=== PATIENT | female | born 1955 | race Caucasian/White ===

== ENCOUNTER → 2016-11-19 | Outpatient (CLI) | payer OTHER ==
[~2016-11-19] MED LIST: AMLO10TA2 PO; AMLO5TAB2 PO; CTRZ10T PO; FAMO20TA5 PO; FEXO1TAB43 PO; LANS15CA PO; LISI20TA PO; LOSA100T7 PO; METF-380 PO; MTP100TCR PO; ONDA4TAB8 PO; PANT40TA PO; PGLT30T PO; ROSU5TAB PO; SCR1T1 PO
[2016-11-19 07:11] LABS: ALANINE AMINOTRANSFERASE 24 U/L (0-55); ALBUMIN 4.1 G/DL (3.2-4.5); ANION GAP 10 MMOL/L (5-14); ASPARTATE AMINO TRANSFERASE 16 U/L (5-34); BILIRUBIN,TOTAL 0.6 MG/DL (0.1-1.0); BLOOD UREA NITROGEN 18 MG/DL (7-18); BUN/CREATININE RATIO 24; CALCIUM 9.1 MG/DL (8.5-10.1); CARBON DIOXIDE 19 MMOL/L (21-32); CHLORIDE 106 MMOL/L (98-107); CREATININE SERUM 0.76 MG/DL (0.60-1.30); GFR ESTIMATED > 60; GLUCOSE 166 MG/DL (70-105); POTASSIUM 4.6 MMOL/L (3.6-5.0); SODIUM 135 MMOL/L (135-145); TOTAL PROTEIN 7.3 G/DL (6.4-8.2)
== END ==
LOC: LAB 06:38
PROVIDERS: ATTEND Internal Medicine
DX: E11.9 Type 2 diabetes mellitus without complications (principal); I10 Essential (primary) hypertension; Z79.899 Other long term (current) drug therapy
CPT/HCPCS: 36415; 80053; 83036

== ENCOUNTER → 2016-12-30 | Outpatient (CLI) | payer OTHER ==
[2016-12-30 07:20] LABS: ALANINE AMINOTRANSFERASE 41 U/L (0-55); ALBUMIN 4.3 G/DL (3.2-4.5); ANION GAP 11 MMOL/L (5-14); ASPARTATE AMINO TRANSFERASE 23 U/L (5-34); BILIRUBIN,TOTAL 0.5 MG/DL (0.1-1.0); BLOOD UREA NITROGEN 21 MG/DL (7-18); BUN/CREATININE RATIO 25; CALCIUM 9.2 MG/DL (8.5-10.1); CARBON DIOXIDE 20 MMOL/L (21-32); CHLORIDE 106 MMOL/L (98-107); CREATININE SERUM 0.85 MG/DL (0.60-1.30); GFR ESTIMATED > 60; GLUCOSE 184 MG/DL (70-105); POTASSIUM 4.4 MMOL/L (3.6-5.0); SODIUM 137 MMOL/L (135-145); TOTAL PROTEIN 7.4 G/DL (6.4-8.2)
== END ==
LOC: LAB 06:43
PROVIDERS: ATTEND Internal Medicine
DX: E11.9 Type 2 diabetes mellitus without complications (principal); Z79.899 Other long term (current) drug therapy
CPT/HCPCS: 36415; 80053

== ENCOUNTER → 2017-03-06 | Outpatient (CLI) | payer OTHER ==
[2017-03-06 06:48] LABS: MEAN PLATELET VOLUME 10.2 FL (7.4-10.4); RED BLOOD COUNT 5.07 10^6/uL (4.35-5.85); RED CELL DISTRIBUTION WIDTH 12.7 % (10.0-14.5)
[2017-03-06 07:09] LABS: ALANINE AMINOTRANSFERASE 51 U/L (0-55); ALBUMIN 4.3 GM/DL (3.2-4.5); ANION GAP 11 MMOL/L (5-14); ASPARTATE AMINO TRANSFERASE 29 U/L (5-34); BILIRUBIN,TOTAL 0.4 MG/DL (0.1-1.0); BLOOD UREA NITROGEN 25 MG/DL (7-18); BUN/CREATININE RATIO 30; CALCIUM 9.4 MG/DL (8.5-10.1); CARBON DIOXIDE 18 MMOL/L (21-32); CHLORIDE 105 MMOL/L (98-107); CHOLESTEROL 167 MG/DL (< 200); CREATININE SERUM 0.82 MG/DL (0.60-1.30); DIRECT LDL 91 MG/DL (1-129); GFR ESTIMATED > 60; GLUCOSE 171 MG/DL (70-105); POTASSIUM 4.5 MMOL/L (3.6-5.0); SODIUM 134 MMOL/L (135-145); TOTAL PROTEIN 7.6 GM/DL (6.4-8.2); TRIGLYCERIDES 301 MG/DL (<150); VLDL CHOLESTEROL 60 MG/DL (5-40)
[2017-03-06 07:28] LABS: THYROID STIMULATING HORMONE 2.61 UIU/ML (0.35-4.94)
== END ==
LOC: LAB 06:33
PROVIDERS: ATTEND Internal Medicine
DX: I10 Essential (primary) hypertension (principal); E11.9 Type 2 diabetes mellitus without complications; Z79.899 Other long term (current) drug therapy; E78.5 Hyperlipidemia, unspecified
CPT/HCPCS: 36415; 80053; 80061; 83036; 84443; 85027

== ENCOUNTER → 2017-10-26 | Outpatient (CLI) | payer OTHER ==
[2017-10-26 12:52] LABS: ALANINE AMINOTRANSFERASE 37 U/L (0-55); ALBUMIN 4.5 GM/DL (3.2-4.5); ALKALINE PHOSPHATASE 61 U/L (40-136); BILIRUBIN,TOTAL 0.7 MG/DL (0.1-1.0); BUN/CREATININE RATIO 22; CALCIUM 9.7 MG/DL (8.5-10.1); CARBON DIOXIDE 20 MMOL/L (21-32); CHLORIDE 105 MMOL/L (98-107); GFR ESTIMATED > 60; GLUCOSE 143 MG/DL (70-105); POTASSIUM 5.1 MMOL/L (3.6-5.0); SODIUM 134 MMOL/L (135-145)
== END ==
LOC: LAB 11:49
PROVIDERS: ATTEND Internal Medicine
DX: E11.9 Type 2 diabetes mellitus without complications (principal); I10 Essential (primary) hypertension; Z79.899 Other long term (current) drug therapy
CPT/HCPCS: 36415; 80053; 83036

== ENCOUNTER 2018-03-02 10:03 | Inpatient (IN) | payer OTHER ==
[~2018-03-02] VITALS: Ht 152.4 cm; Wt 81.9 kg
[2018-03-02] VITALS (15 sets, daily range): BP systolic 100–144; BP diastolic 50–90
[~2018-03-02 10:03] MED LIST changes: -CANA100T PO; -CETI10TA17 PO; -LISI40TA PO; -METF10002 PO; -METO-395 PO; -ROSU5TAB12 PO; -SITA100T12 PO; -SPIR25TA5 PO
[2018-03-02] MEDS ORDERED: NS IV 1000 ML 1,000 ML IV SCH ×2 (10:23→16:30)
[2018-03-02] MEDS ORDERED: RT-ALBUTEROL SULF 2.5 MG/3 ML PRE-MIX VIAL INH STA (10:25)
[2018-03-02] MEDS ORDERED: FUROSEMIDE 40 MG/4 ML INJ (LASIX) IVP ONE (10:30)
[2018-03-02] MEDS ORDERED: CALCIUM GLUC. 10% 4.65 MEQ/10 ML VIAL IV ONE (10:30)
--- NOTE | 2018-03-02 10:40 | ED General ---
General Chief Complaint: General Problems/Pain Stated Complaint: POTASSIUM HIGH AND KIDNEY FUNCTION DOWN GM Nursing Triage Note: PT SENT TO THE ER BY STEPHANIE SCHROEDER WITH HIGH POTASSIUM AND BAD KIDNEY FUNCTION FROM LABS THIS A.M. Nursing Sepsis Screen: No Definite Risk Source of Information: Patient, Spouse Exam Limitations: No Limitations History of Present Illness Date Seen by Provider: Mar 02, 2018 Time Seen by Provider: 10:24 Initial Comments Patient presents to ER by private conveyance with a chief complaint she was called by her private provider and told that her potassium was elevated and she should come to the ER to have it worked up. She thinks it was around 6. She says for the past 4 days she's not felt very well and she had labs drawn today at this hospital in anticipation of an appointment tomorrow with Dr. Lowry. She couple months ago started spironolactone she is also on metformin in the, Nara has a history of diabetes, couple other blood pressure medicines. She been taking her medicines routinely. She is a pharmacist locally. She's not having any chest pain or shortness of breath or feel of palpitations or flutters. She is not having any swelling. She denies fevers chills nausea vomiting. Her labs from this morning inserted potassium 6.9 sodium 131 and a creatinine of 1.9 with a GFR 26. Her calcium was 10.0 and glucose 156. TSH was normal 2.3. CBC unremarkable with a white count of 8 and hemoglobin 14 and platelets of 239 previous labs in October demonstrated potassium of 5.1 which was subsequent to starting her spironolactone. Hemoglobin A1c at that time was 8.2 Allergies and Home Medications Allergies Coded Allergies: Sodium Bisulfite (Verified Allergy, Severe, SHORTNESS OF BREATH, HIVES, 10/04) Sulfa (Sulfonamide Antibiotics) (Verified Allergy, Severe, RASH, SHORTNESS OF BREATH, 11/09/07) Penicillins (Verified Allergy, Mild, RASH, 11/09/07) Home Medications Amlodipine Besylate 10 Mg Tablet, 10 MG PO DAILY, (Reported) Cetirizine Hcl 10 Mg Tablet, 1 EACH PO DAILY, (Reported) Fexofenadine/Pseudoephedrine 1 Each Tab.er.24h, 1 EACH PO DAILY, (Reported) Lisinopril 20 Mg Tablet, 20 MG PO BID, (Reported) Losartan Potassium 100 Mg Tablet, 100 MG PO DAILY, (Reported) Metformin Hcl 1,000 Mg Tablet, 1 EACH PO BID WITH MEALS, (Reported) Metoprolol Succinate 100 Mg Tab.sr.24h, 1 EACH PO DAILY, (Reported) Pioglitazone Hcl 30 Mg Tab, 30 MG PO DAILY, (Reported) Rosuvastatin Calcium 5 Mg Tablet, 5 MG PO DAILY, (Reported) Patient Home Medication List Home Medication List Reviewed: Yes Review of Systems Constitutional: No chills, No diaphoresis, No fever; malaise, weakness EENTM: No ear discharge, No ear pain Respiratory: No cough, No short of breath Cardiovascular: No chest pain, No edema, No Hx of Intervention, No palpitations , No syncope, No vascular heart diseas Gastrointestinal: No abdominal pain, No constipation, No diarrhea, No nausea Genitourinary: No discharge, No dysuria Musculoskeletal: No back pain, No joint pain Past Znoowcs-Gaaejv-Ssqsix Hx Patient Social History Alcohol Use: Denies Use Recreational Drug Use: No Smoking Status: Former Smoker Former Smoker, Quit: Aug 24, 1985 Recent Foreign Travel: No Contact w/Someone Who Travel: No Recent Infectious Disease Expo: No Recent Hopitalizations: No Seasonal Allergies Seasonal Allergies: Yes Past Medical History Surgeries: Yes (CS X2) Section, Tonsillectomy Respiratory: No Cardiac: No Neurological: No Genitourinary: No Gastrointestinal: No Musculoskeletal: No Endocrine: Yes Diabetes, Non-Insulin dep HEENT: No Cancer: No Psychosocial: No Integumentary: No Physical Exam Vital Signs Vital Signs - First Documented 03/02/18 10:09 Temp 96.0 Pulse 66 Resp 20 B/P (MAP) 116/86 (96) Pulse Ox 100 O2 Delivery Room Air Capillary Refill : Less Than 3 Seconds Height, Weight, BMI Height: 5', 0.00" Weight: 182lbs 0.0oz, [id number] Method:Stated ,38.5BMI General Appearance: No Apparent Distress, WD/WN Eyes: Bilateral Eye Normal Inspection, Bilateral Eye PERRL, Bilateral Eye EOMI HEENT: PERRL/EOMI, TMs Normal, Normal ENT Inspection, Pharynx Normal Neck: Full Range of Motion, Normal Inspection, Non Tender, Supple Respiratory: Chest Non Tender, Lungs Clear, Normal Breath Sounds, No Accessory Muscle Use, No Respiratory Distress Cardiovascular: Regular Rate, Rhythm, No Edema, No Murmur, Normal Peripheral Pulses Gastrointestinal: Normal Bowel Sounds, Non Tender, Soft Extremity: Normal Capillary Refill, No Pedal Edema Neurologic/Psychiatric: Alert, Oriented x3, No Motor/Sensory Deficits, Normal Mood/Affect Skin: Normal Color, Warm/Dry Progress/Results/Core Measures Suspected Sepsis Recent Fever Within 48 Hours: No Infection Criteria Present: None New/Unexplained Altered Menta: No Sepsis Screen: No Definite Risk SIRS Temperature:96.0 Pulse: 66 Respiratory Rate: 20 Blood Pressure 116 /86 Mean: 96 Results/Orders Lab Results Laboratory Tests Test 03/02/18 10:35 Range/Units Urine Color YELLOW Urine Clarity SLIGHTLY CLOUDY Urine pH 5 5-9 Urine Specific [place] 1.020 1.016-1.022 Urine Protein 1+ H NEGATIVE Urine Glucose (UA) 2+ H NEGATIVE Urine Ketones NEGATIVE NEGATIVE Urine Nitrite NEGATIVE NEGATIVE Urine Bilirubin NEGATIVE NEGATIVE Urine Urobilinogen NORMAL NORMAL MG/DL Urine Leukocyte Esterase 2+ H NEGATIVE Urine RBC (Auto) NEGATIVE NEGATIVE Urine RBC NONE /HPF Urine WBC 5-10 H /HPF Urine Squamous Epithelial Cells 2-5 /HPF Urine Crystals NONE /LPF Urine Bacteria TRACE /HPF Urine Casts PRESENT /LPF Urine Hyaline Casts 25-50 H /LPF Urine Mucus NEGATIVE /LPF Urine Culture Indicated YES My Orders Orders - NERY AMBROSE Saline Lock/Iv-Start (03/02/18 10:23) Ns Iv 1000 Ml (Sodium Chloride 0.9%) (03/02/18 10:23) Ekg Tracing (03/02/18 10:23) Ua Culture If Indicated (03/02/18 10:24) Albuterol Pre-Mix Nebs (Rt) (Proventil (03/02/18 10:25) Svn Small Volume Nebulizer (03/02/18 10:25) Continuous Ekg Monitoring (03/02/18 10:27) Calcium Gluconate 10% Inj (Calcium Gluco (03/02/18 10:30) Furosemide Injection (Lasix Injection) (03/02/18 10:30) Urine Culture (03/02/18 10:35) Medications Given in ED Current Medications Medications Dose Ordered Sig/Haylee Route Start Time Stop Time Status Last Admin Dose Admin Calcium Gluconate 4.65 meq ONCE ONCE IV 03/02/18 10:30 03/02/18 10:31 DC 03/02/18 11:01 4.65 MEQ Furosemide 40 mg ONCE ONCE IVP 03/02/18 10:30 03/02/18 10:31 DC 03/02/18 11:00 40 MG Vital Signs/I&O 03/02/18 03/02/18 10:09 11:19 Temp 96.0 Pulse 66 Resp 20 B/P (MAP) 116/86 (96) Pulse Ox 100 97 O2 Delivery Room Air Room Air Capillary Refill : Less Than 3 Seconds Blood Pressure Mean: 96 Progress Note : Time: 11:23 Progress Note We will initiate calcium gluconate and give some breathing treatments as well as 1 L of IV fluids, obtain a urine specimen and give her some Lasix IV. Once this done we'll give her set up inpatient and on repeat labs as long she is not symptomatic we'll let Internal Medicine decide whether they want to start insulin glucose therapy. Initial EKG does show some tenting of the T waves but no other dysrhythmia. ECG Initial ECG Impression Date: Mar 02, 2018 Initial ECG Impression Time: 10:45 Initial ECG Rate: 61 Initial ECG Rhythm: Normal Sinus Initial ECG Intervals: Normal Initial ECG Impression: Normal, Nonspecific Changes Comment Mildly tented T waves without ST elevation or depression. Departure Communication (Admissions) Time/Spoke to Admitting Phy: 11:40 Discussed case lab and EKG with Dr. Tamayo. She wants repeat lab at 1500 and if it 's high then she will initiate insulin and glucose so she would like the patient in the ICU. Impression Primary Impression: Acute hyperkalemia Additional Impressions: AMBER (acute kidney injury) UTI (urinary tract infection) Qualified Codes: N30.00 - Acute cystitis without hematuria Disposition: ADMITTED INPATIENT Condition: Stable Admissions Decision to Admit Reason: Admit from ER (General) Decision to Admit/Date: Mar 02, 2018 Time/Decision to Admit Time: 11:53 Departure-Patient Inst. Referrals: LAUREL LOWRY MD (PCP/Family) Primary Care Physician Copy Copies To 1: LAUREL LOWRY MD, TITUS J Mar 02, 2018 10:40
[2018-03-02 10:50] LABS: BILIRUBIN,URINE NEGATIVE (NEGATIVE); CLARITY,URINE SLIGHTLY CLOUDY; COLOR,URINE YELLOW; GLUCOSE, URINE (UA) 2+ (NEGATIVE); KETONES,URINE NEGATIVE (NEGATIVE); LEUKOCYTE ESTERASE ,URINE 2+ (NEGATIVE); NITRITE,URINE NEGATIVE (NEGATIVE); PH,URINE 5 (5-9); PROTEIN,URINE 1+ (NEGATIVE); UROBILINOGEN,URINE NORMAL (NORMAL)
[2018-03-02 10:58] LABS: BACTERIA,URINE TRACE /HPF; HYALINE CASTS, URINE 25-50 /LPF
[2018-03-02] MEDS ORDERED: cefTRIAXone INJECTION 1,000 MG in NS (IVPB) 50 ML IV ONE (12:00)
[2018-03-02] MEDS ORDERED: CATHETER FLUSH 10 ML SYR IV PRN (13:00)
[2018-03-02] MEDS: NS IV 1000 ML 1,000 ML IV SCH ×2 (13:39→21:20)
[2018-03-02] MEDS ORDERED: SITA100T12 PO (14:21)
[2018-03-02] MEDS ORDERED: METO-395 PO (14:21)
[2018-03-02] MEDS ORDERED: METF10002 PO (14:21)
[2018-03-02] MEDS ORDERED: AMLO5TAB2 PO (14:21)
[2018-03-02] MEDS ORDERED: SPIR25TA5 PO (14:21)
[2018-03-02] MEDS ORDERED: LISI40TA PO (14:21)
[2018-03-02] MEDS ORDERED: CANA100T PO (14:21)
[2018-03-02] MEDS ORDERED: ROSU5TAB12 PO (14:21)
[2018-03-02] MEDS ORDERED: CETI10TA17 PO (14:25)
--- NOTE | 2018-03-02 14:31 | History & Physical-Hospitalist ---
History of Present Illness HPI/Chief Complaint Pt is a 63yoCF with a PMH of HTN, NIDDMII, and HLD who presented to the ER with CC hyperkalemia after having labs drawn for his routine doctor's appointment. She states that she has noticed she has been more weak lately as well and has been having a hard time standing. Her labs revealed a K of 6.9 this AM and a creatinine of 1.94. She was referred to the ER for this and EKG revealed minimally peaked T waves so she was emergently given calcium gluconate. She was also treated with lasix and high dose albuterol. Repeat labs are to be drawn at 1500 today. Date Seen 03/02/18 Time Seen by Provider: 14:00 Attending Physician Antonio Tamayo MD PCP Rick Patel MD Referring Physician Date of Admission Mar 02, 2018 at 11:50 am Home Medications & Allergies Home Medications Reviewed patient Home Medication Reconciliation performed by pharmacy medication reconciliations veterinary surgery technician and/or nursing. Patients Allergies have been reviewed. Allergies Allergies Coded Allergies Sodium Bisulfite (Verified Allergy, Severe, SHORTNESS OF BREATH, HIVES, ) Sulfa (Sulfonamide Antibiotics) (Verified Allergy, Severe, RASH, SHORTNESS OF BREATH, 11/09/07) Penicillins (Verified Allergy, Mild, RASH, 11/09/07) Past Jojwzpo-Mcaoxd-Dnonig Hx Past Med/Social Hx: Reviewed Nursing Past Med/Soc Hx Patient Social History Employed/Student: employed Alcohol Use: Rarely Uses Number of Drinks Today: 0 Recreational Drug Use: No Smoking Status: Former Smoker Former Smoker, Quit: Aug 24, 1985 Physical Abuse Screen: No Sexual Abuse: No Recent Foreign Travel: No Contact w/other who traveled: No Recent Hopitalizations: No Recent Infectious Disease Expo: No Seasonal Allergies Seasonal Allergies: Yes Past Medical History Surgeries: Section, Tonsillectomy, Vasectomy Currently Using CPAP: Yes Cardiac: High Cholesterol, Hypertension h/o preeclampsia Endocrine: Diabetes, Non-Insulin dep History of Blood Disorders: No Family History Reviewed Nursing Family Hx Heart Disease, CAD Over 55 Years Old, Stroke Review of Systems Constitutional: No chills, No fever; malaise, weakness EENTM: No blurred vision, No double vision, No nose congestion, No throat pain Respiratory: No cough, No dyspnea on exertion, No short of breath Cardiovascular: No chest pain, No edema, No palpitations Gastrointestinal: No abdominal pain, No constipation, No diarrhea, No nausea, No vomiting Genitourinary: No dysuria, No frequency Musculoskeletal: No joint pain, No muscle pain Skin: No lesions, No rash Psychiatric/Neurological: Denies Headache, Denies Numbness, Denies Tingling; Weakness (generalized) Physical Exam Physical Exam Vital Signs Vital Signs - First Documented 03/02/18 10:09 Temp 96.0 Pulse 66 Resp 20 B/P (MAP) 116/86 (96) Pulse Ox 100 O2 Delivery Room Air Capillary Refill : Less Than 3 Seconds Height, Weight, BMI Height: 5', 0.00" Weight: 182lbs 0.0oz, [id number] Method:Stated ,35.5BMI General Appearance: No Apparent Distress, WD/WN HEENT: PERRL/EOMI, Moist Mucous Membranes Neck: Non Tender, Supple Respiratory: Lungs Clear, No Respiratory Distress Cardiovascular: Regular Rate, Rhythm, No Murmur Gastrointestinal: Normal Bowel Sounds, Non Tender, Soft Extremity: Normal Capillary Refill, No Calf Tenderness Neurologic/Psychiatric: Alert, Oriented x3, Normal Mood/Affect Skin: Normal Color, Warm/Dry Results Results/Procedures Labs Laboratory Tests 03/02/18 15:20 03/02/18 19:05 03/03/18 03:00 03/03/18 03:20 03/03/18 09:55 Patient resulted labs reviewed. 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 and metformin for years Will hold all for now (2) AMBER (acute kidney injury) Status: Resolved Assessment & Plan: Baseline creatinine 0.9 in October Continue IVF Trend (3) Non-insulin dependent type 2 diabetes mellitus Status: Chronic Assessment & Plan: Will add sliding scale and accucheks (4) Essential (primary) hypertension Assessment & Plan: Took BP meds this AM metoprolol added Trend (5) Prophylactic measure Assessment & Plan: NS at 180ml/hr Heparin for DVT ppx Clinical Quality Measures DVT/VTE Risk/Contraindication: Risk Factor Score Per Nursin RFS Level Per Nursing on Admit: 2=Moderate ANTONIO TAMAYO MD Mar 02, 2018 2:31 pm
[2018-03-02] MEDS ORDERED: ANTACID SUSP 30 ML UDC (MYLANTA) PO PRN (14:45)
[2018-03-02] MEDS ORDERED: ACETAMINOPHEN 325 MG TABLET PO PRN (14:45)
[2018-03-02] MEDS ORDERED: MILK OF MAGNESIA 400 MG/5 ML 30 ML UDC PO PRN (14:45)
[2018-03-02] MEDS: inSUlin ASPART (NovoLOG) 1 UNIT/0.01 ML (CHARGE PER UNIT) SC SCH ×2 (15:05→21:21)
[2018-03-02 15:52] LABS: CALCIUM 9.6 MG/DL (8.5-10.1); CREATININE SERUM 1.56 MG/DL (0.60-1.30)
[2018-03-02 16:01] LABS: POTASSIUM 7.1 MMOL/L (3.6-5.0)
[2018-03-02] MEDS ORDERED: RT-ALBUTEROL SULF 2.5 MG/3 ML PRE-MIX VIAL ONE (16:25)
[2018-03-02] MEDS ORDERED: DEXTROSE 50% 50 ML (IMS) SYR IV NR (16:30)
[2018-03-02] MEDS ORDERED: RT-ALBUTEROL SULF 2.5 MG/3 ML PRE-MIX VIAL INH NR (16:30)
[2018-03-02] MEDS ORDERED: RT-ALBUTEROL SULF 2.5 MG/3 ML PRE-MIX VIAL INH ONE (16:30)
[2018-03-02] MEDS ORDERED: SOD POLYSTERENE 15 GM/60 ML (KAYEXALATE) UNIT DOSE PO NR (16:30)
[2018-03-02] MEDS ORDERED: FUROSEMIDE 40 MG/4 ML INJ (LASIX) IVP NR (16:30)
[2018-03-02] MEDS ORDERED: inSUlin (REGULAR) HUMAN 1 UNIT/0.01 ML (CHARGE PER UNIT) IV NR (16:30)
[2018-03-02] MEDS ORDERED: SODIUM BICARB 8.4% 50 MEQ/50 ML (ABBOTT) SYR IV NR (16:30)
[2018-03-02] MEDS ORDERED: NS IV 1000 ML 1,000 ML IV ONE (16:30)
[2018-03-02 19:29] LABS: CREATININE SERUM 1.29 MG/DL (0.60-1.30); POTASSIUM 4.9 MMOL/L (3.6-5.0)
[2018-03-02] MEDS: ONDANSETRON 4 MG/2 ML (SDV) Z0FRAN IV PRN (20:50)
[2018-03-03] VITALS (24 sets, daily range): BP systolic 95–150; BP diastolic 56–99
[2018-03-03] MEDS: NS IV 1000 ML 1,000 ML IV SCH (03:01)
[2018-03-03 03:38] LABS: BASOPHILS % (AUTO) 0 % (0-10); EOSINOPHILS # (AUTO) 0.1 10^3/uL (0.0-0.3); EOSINOPHILS % (AUTO) 2 % (0-10); HEMATOCRIT 35 % (35-52); HEMOGLOBIN 11.9 G/DL (11.5-16.0); LYMPHOCYTES # (AUTO) 2.1 X 10^3 (1.0-4.0); LYMPHOCYTES % (AUTO) 42 % (12-44); MEAN CORPUSCULAR HEMOGLOBIN 29 PG (25-34); MEAN CORPUSCULAR HGB CONC 34 G/DL (32-36); MEAN CORPUSCULAR VOLUME 84 FL (80-99); MEAN PLATELET VOLUME 10.1 FL (7.4-10.4); MONOCYTES # (AUTO) 0.6 X 10^3 (0.0-1.0); MONOCYTES % (AUTO) 11 % (0-12); NEUTROPHILS # (AUTO) 2.3 X 10^3 (1.8-7.8); NEUTROPHILS % (AUTO) 45 % (42-75); PLATELET COUNT 174 10^3/uL (130-400); RED BLOOD COUNT 4.15 10^6/uL (4.35-5.85); RED CELL DISTRIBUTION WIDTH 12.9 % (10.0-14.5)
[2018-03-03 05:47] LABS: BUN/CREATININE RATIO 59; CALCIUM 8.3 MG/DL (8.5-10.1); CARBON DIOXIDE 12 MMOL/L (21-32); CHLORIDE 117 MMOL/L (98-107); CREATININE SERUM 0.86 MG/DL (0.60-1.30); GFR ESTIMATED > 60; GLUCOSE 107 MG/DL (70-105); POTASSIUM 5.5 MMOL/L (3.6-5.0); SODIUM 138 MMOL/L (135-145)
[2018-03-03] MEDS ORDERED: POTASSIUM CL 10MEQ/50ML IVPB 50 ML IV SCH ×2 (06:00)
[2018-03-03] MEDS ORDERED: KCL 20 MEQ TAB (K-DUR) PO SCH ×2 (06:00)
[2018-03-03] MEDS ORDERED: MAGNESIUM 1 GM/100 ML IVPB 100 ML IV SCH (06:00)
--- NOTE | 2018-03-03 06:06 | Pulmonary Progress Note ---
Subjective Time Seen by Provider: 06:01 Subjective/Events-last exam 63yo presented secondary HTN, NIDDM presented found to have hyperkalemia 6.9 and Cr 1.94. 2 mo ago pt was started on spironolactone metaformin, and Januvia. PT had peaked Twaves on EKG. Pt was treated in ED with Calcium Gluconate, Lasix , and Albuterol. K+ was repeated and was found to be increased from presentation. PT was then treated with bicarb, insulin, Kayexalate and lasix. repeat K+ 2hrs later was down to 4.9. I am consulted for ICU management. Focused Exam Lactate Level 03/02/18 16:55: Lactic Acid Level 1.59 Exam Exam Vital Signs Date Time Temp Pulse Resp B/P (MAP) Pulse Ox O2 Delivery O2 Flow Rate FiO2 03/03/18 05:00 73 15 106/58 (74) 95 Room Air 03/03/18 04:00 75 14 116/59 (78) 98 Room Air 03/03/18 03:00 81 17 117/70 (86) 98 Room Air 03/03/18 02:00 73 19 98/68 (78) 98 Room Air 03/03/18 01:00 78 03/03/18 01:00 78 14 108/61 (77) 96 Room Air 03/03/18 00:00 79 20 112/62 (79) 97 Room Air 03/02/18 23:00 82 12 107/59 (75) 97 Room Air 03/02/18 22:00 93 15 110/60 (77) 98 Room Air 03/02/18 21:00 102 21 130/56 (80) 97 Room Air 03/02/18 20:00 106 16 144/59 (87) 98 Room Air 03/02/18 19:00 90 19 133/64 (87) 98 Room Air 03/02/18 19:00 90 03/02/18 18:00 96 15 125/58 (80) 95 Room Air 03/02/18 17:00 97 16 140/51 (80) 100 Room Air 03/02/18 16:29 98 Room Air 03/02/18 16:00 79 16 118/90 (99) 99 Room Air 03/02/18 15:00 79 22 111/62 (78) 97 Room Air 7/10/18 14:00 95 15 118/54 (75) 100 Room Air 03/02/18 13:45 87 13 122/50 (74) 99 Room Air 03/02/18 13:30 87 22 138/63 (88) 100 Room Air 03/02/18 13:15 85 19 100/63 (75) 97 Room Air 03/02/18 13:00 86 20 119/62 (81) 97 Room Air 03/02/18 12:45 97.4 89 15 126/55 (78) 96 Room Air 03/02/18 12:43 86 03/02/18 12:35 96.0 87 20 136/57 (96) 98 Room Air 03/02/18 11:19 97 Room Air 03/02/18 10:09 96.0 66 20 116/86 (96) 100 Room Air I & O 03/03/18 07:00 Intake Total 550 ml Output Total 0 ml Balance 550 ml PULEXAM Height: 5', 0.00" Weight: 182lbs 0.0oz, [id number] Method:Stated ,35.5BMI General Appearance: No Apparent Distress, WD/WN HEENT: PERRL/EOMI, Moist Mucous Membranes Neck: Non Tender, Supple Respiratory: Lungs Clear, No Respiratory Distress Cardiovascular: Regular Rate, Rhythm, No Murmur Capillary Refill: Less Than 3 Seconds Extremity: Normal Capillary Refill, No Calf Tenderness Neurologic/Psychiatric: Alert, Oriented x3, Normal Mood/Affect Skin: Normal Color, Warm/Dry Results Lab Laboratory Tests 03/02/18 15:20 03/02/18 19:05 03/03/18 03:00 03/03/18 03:20 Assessment/Plan Assessment/Plan Severe Hyperkalemia with nonanion gapped metabolic acidosis -Will repeat Lasix and Kayexalate this AM -Home Spironolactone is on hold -s/p Calcium gluconate, kayexalte, insulin, lasix, bicarb -repeat 2 amps of bicarb -Start BiCarb gtt with 2 amps of bicarb 1/2 NS at 150 -Repeat Chem 2hrs after starting bicarb gtt AMBER- improving -IVF -Lisinopril and spironolactone are on hold -Hold of on repeat lasix for now and repeat labs NIDDM -Monitor HTN -Lopressor MEY PETERSON DO Mar 03, 2018 06:06
[2018-03-03] MEDS ORDERED: SODIUM BICARBONATE 8.4% VIAL 100 MEQ in 1/2 NS IV SOLUTION 1,000 ML IV SCH (06:15)
[2018-03-03] MEDS: MAGNESIUM 1 GM/100 ML IVPB 100 ML IV SCH (06:54)
--- NOTE | 2018-03-03 06:54 | Pulmonary Consultation ---
History of Present Illness History of Present Illness Date of Consultation 03/03/18 06:54 Time Seen by Provider: 06:55 Date of Admission History of Present Illness 63yo presented secondary HTN, NIDDM presented found to have hyperkalemia 6.9 and Cr 1.94. 2 mo ago pt was started on spironolactone metaformin, and Januvia. PT had peaked Twaves on EKG. Pt was treated in ED with Calcium Gluconate, Lasix , and Albuterol. K+ was repeated and was found to be increased from presentation. PT was then treated with bicarb, insulin, Kayexalate and lasix. repeat K+ 2hrs later was down to 4.9. I am consulted for ICU management. Allergies and Home Medications Allergies Coded Allergies: Sodium Bisulfite (Verified Allergy, Severe, SHORTNESS OF BREATH, HIVES, 10/04) Sulfa (Sulfonamide Antibiotics) (Verified Allergy, Severe, RASH, SHORTNESS OF BREATH, 11/09/07) Penicillins (Verified Allergy, Mild, RASH, 11/09/07) Home Medications Amlodipine Besylate 5 Mg Tablet, 10 MG PO DAILY, (Reported) TAKES 2 (5MG) TABLETS Canagliflozin 100 Mg Tablet, 100 MG PO DAILY, (Reported) Cetirizine HCl 10 Mg Tablet, 10 MG PO HS, (Reported) Fexofenadine/Pseudoephedrine 1 Each Tab.er.24h, 1 TAB PO DAILY PRN for ALLERGIES , (Reported) Lisinopril 40 Mg Tablet, 40 MG PO DAILY, (Reported) Metformin HCl 1,000 Mg Tablet, 1,000 MG PO BID WITH MEALS, (Reported) Metoprolol Succinate 100 Mg Tab.er.24h, 100 MG PO DAILY, (Reported) Rosuvastatin Calcium 5 Mg Tablet, 5 MG PO HS, (Reported) Sitagliptin Phosphate 100 Mg Tablet, 100 MG PO DAILY, (Reported) Spironolactone 25 Mg Tablet, 25 MG PO DAILY, (Reported) Past Qpdfzdz-Xjsdgs-Vmerei Hx Past Med/Social Hx: Reviewed Nursing Past Med/Soc Hx Patient Social History Alcohol Use: Rarely Uses Number of Drinks Today: 0 Recreational Drug Use: No Smoking Status: Former Smoker Former Smoker, Quit: Aug 24, 1985 Recent Foreign Travel: No Contact w/Someone Who Travel: No Recent Infectious Disease Expo: No Recent Hopitalizations: No Seasonal Allergies Seasonal Allergies: Yes Past Medical History Surgeries: Yes (CS X2) Section, Tonsillectomy, Vasectomy Respiratory: No Currently Using CPAP: Yes Cardiac: Yes High Cholesterol, Hypertension Neurological: No Genitourinary: No Gastrointestinal: No Musculoskeletal: No Endocrine: Yes Diabetes, Non-Insulin dep HEENT: No Cancer: No Psychosocial: No Integumentary: No Blood Disorders: No Family Medical History Reviewed Nursing Family Hx Heart Disease, CAD Over 55 Years Old, Stroke Review of Systems Time Seen by Provider: 08:50 Exam Exam Vital Signs Date Time Temp Pulse Resp B/P (MAP) Pulse Ox O2 Delivery O2 Flow Rate FiO2 03/03/18 05:00 73 15 106/58 (74) 95 Room Air 03/03/18 04:00 75 14 116/59 (78) 98 Room Air 03/03/18 03:00 81 17 117/70 (86) 98 Room Air 03/03/18 02:00 73 19 98/68 (78) 98 Room Air 03/03/18 01:00 78 03/03/18 01:00 78 14 108/61 (77) 96 Room Air 03/03/18 00:00 79 20 112/62 (79) 97 Room Air 03/02/18 23:00 82 12 107/59 (75) 97 Room Air 03/02/18 22:00 93 15 110/60 (77) 98 Room Air 03/02/18 21:00 102 21 130/56 (80) 97 Room Air 03/02/18 20:00 106 16 144/59 (87) 98 Room Air 03/02/18 19:00 90 19 133/64 (87) 98 Room Air 03/02/18 19:00 90 03/02/18 18:00 96 15 125/58 (80) 95 Room Air 03/02/18 17:00 97 16 140/51 (80) 100 Room Air 03/02/18 16:29 98 Room Air 03/02/18 16:00 79 16 118/90 (99) 99 Room Air 03/02/18 15:00 79 22 111/62 (78) 97 Room Air 03/02/18 14:00 95 15 118/54 (75) 100 Room Air 03/02/18 13:45 87 13 122/50 (74) 99 Room Air 03/02/18 13:30 87 22 138/63 (88) 100 Room Air 03/02/18 13:15 85 19 100/63 (75) 97 Room Air 03/02/18 13:00 86 20 119/62 (81) 97 Room Air 03/02/18 12:45 97.4 89 15 126/55 (78) 96 Room Air 03/02/18 12:43 86 03/02/18 12:35 96.0 87 20 136/57 (96) 98 Room Air 03/02/18 11:19 97 Room Air 03/02/18 10:09 96.0 66 20 116/86 (96) 100 Room Air I & O 03/03/18 07:00 Intake Total 550 ml Output Total 0 ml Balance 550 ml PULEXAM Height: 5', 0.00" Weight: 182lbs 0.0oz, [id number] Method:Stated ,35.5BMI General Appearance: No Apparent Distress, WD/WN HEENT: PERRL/EOMI, Moist Mucous Membranes Neck: Non Tender, Supple Respiratory: Lungs Clear, No Respiratory Distress Cardiovascular: Regular Rate, Rhythm, No Murmur Capillary Refill: Less Than 3 Seconds Extremity: Normal Capillary Refill, No Calf Tenderness Neurologic/Psychiatric: Alert, Oriented x3, Normal Mood/Affect Skin: Normal Color, Warm/Dry Results Lab Laboratory Tests 03/02/18 15:20 03/02/18 19:05 03/03/18 03:00 03/03/18 03:20 Assessment/Plan Assessment/Plan Severe Hyperkalemia with nonanion gapped metabolic acidosis -Will repeat Lasix and Kayexalate this AM -Home Spironolactone is on hold -s/p Calcium gluconate, kayexalte, insulin, lasix, bicarb -repeat 2 amps of bicarb -Start BiCarb gtt with 2 amps of bicarb 1/2 NS at 150 -Repeat Chem 2hrs after starting bicarb gtt AMBER- improving -IVF -Lisinopril and spironolactone are on hold -Hold of on repeat lasix for now and repeat labs NIDDM -Monitor HTN -Lopressor 255 MEY PETERSON DO Mar 03, 2018 06:54
[2018-03-03] MEDS ORDERED: SODIUM BICARB 8.4% 50 MEQ/50 ML (ABBOTT) SYR IV NR (07:11)
[2018-03-03] MEDS: inSUlin ASPART (NovoLOG) 1 UNIT/0.01 ML (CHARGE PER UNIT) SC SCH ×4 (07:30→21:00)
[2018-03-03] MEDS ORDERED: SODIUM BICARBONATE 8.4% VIAL 100 MEQ in D5W 1000 ML IV SOLUTION 1,000 ML IV SCH (07:30)
[2018-03-03] MEDS: meTOprolol SUCCINATE 100 MG (TOPROL XL) TAB PO SCH (07:58)
--- NOTE | 2018-03-03 08:21 | Progress Note-Hospitalist ---
Subjective HPI/CC On Admission Date Seen by Provider: Mar 03, 2018 Time Seen by Provider: 08:16 Pt is a 63yoCF with a PMH of HTN, NIDDMII, and HLD who presented to the ER with CC hyperkalemia after having labs drawn for his routine doctor's appointment. She states that she has noticed she has been more weak lately as well and has been having a hard time standing. Her labs revealed a K of 6.9 this AM and a creatinine of 1.94. She was referred to the ER for this and EKG revealed minimally peaked T waves so she was emergently given calcium gluconate. She was also treated with lasix and high dose albuterol. Repeat labs are to be drawn at 1500 today. Subjective/Events-last exam Pt reports feeling well. No complaints or concerns. Discussed with Dr Arteaga and will start bicarb gtt. Focused Exam Lactate Level 03/02/18 16:55: Lactic Acid Level 1.59 Objective Exam Vital Signs Vital Signs Date Time Temp Pulse Resp B/P (MAP) Pulse Ox O2 Delivery O2 Flow Rate FiO2 03/03/18 12:05 Room Air 03/03/18 12:05 96.4 03/03/18 12:00 72 21 150/68 (95) 99 Capillary Refill : Less Than 3 Seconds General Appearance: No Apparent Distress, WD/WN HEENT: PERRL/EOMI, Moist Mucous Membranes Neck: Non Tender, Supple Respiratory: Lungs Clear, No Respiratory Distress Cardiovascular: Regular Rate, Rhythm, No Murmur Gastrointestinal: Normal Bowel Sounds, Non Tender, Soft Extremity: Normal Capillary Refill, No Calf Tenderness Neurologic/Psychiatric: Alert, Oriented x3, Normal Mood/Affect Skin: Normal Color, Warm/Dry Results/Procedures Lab Laboratory Tests 03/02/18 15:20 03/02/18 19:05 03/03/18 03:00 03/03/18 03:20 03/03/18 09:55 Patient resulted labs reviewed. 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
--- NOTE | 2018-03-03 10:25 | Physical Therapy Progress Note ---
Therapy Progress Note Chart reviewed and evaluation attempted. Nursing reports that patient is independent with mobility and ambulates on her own and is actually taking a shower herself at the moment. PT eval will not be performed due to patient being independent with mobility. BRISA MORENO PT Mar 03, 2018 10:24
[2018-03-03 10:35] LABS: ALANINE AMINOTRANSFERASE 42 U/L (0-55); ALKALINE PHOSPHATASE 38 U/L (40-136); BILIRUBIN,TOTAL 0.3 MG/DL (0.1-1.0); BUN/CREATININE RATIO 45; CALCIUM 8.5 MG/DL (8.5-10.1); CARBON DIOXIDE 19 MMOL/L (21-32); CHLORIDE 112 MMOL/L (98-107); CREATININE SERUM 0.78 MG/DL (0.60-1.30); GFR ESTIMATED > 60; GLUCOSE 183 MG/DL (70-105); POTASSIUM 5.5 MMOL/L (3.6-5.0); SODIUM 138 MMOL/L (135-145); TOTAL PROTEIN 6.8 GM/DL (6.4-8.2)
[2018-03-03] MEDS: ENOXAPARIN 40 MG/0.4 ML (LOVENOX) SYR SC SCH (12:52)
[2018-03-03] MEDS ORDERED: FUROSEMIDE 40 MG/4 ML INJ (LASIX) IVP NR (13:15)
[2018-03-03] MEDS ORDERED: SOD POLYSTERENE 15 GM/60 ML (KAYEXALATE) UNIT DOSE PO NR (13:15)
[2018-03-03 17:56] LABS: BUN/CREATININE RATIO 31; CALCIUM 9.2 MG/DL (8.5-10.1); CARBON DIOXIDE 23 MMOL/L (21-32); CHLORIDE 106 MMOL/L (98-107); CREATININE SERUM 0.85 MG/DL (0.60-1.30); GFR ESTIMATED > 60; GLUCOSE 165 MG/DL (70-105); SODIUM 140 MMOL/L (135-145)
[2018-03-03] MEDS: ONDANSETRON 4 MG/2 ML (SDV) Z0FRAN IV PRN (20:58)
[2018-03-04] VITALS (12 sets, daily range): BP systolic 124–186; BP diastolic 64–79
[2018-03-04 04:07] LABS: BASOPHILS % (AUTO) 0 % (0-10); EOSINOPHILS # (AUTO) 0.1 10^3/uL (0.0-0.3); EOSINOPHILS % (AUTO) 2 % (0-10); HEMATOCRIT 35 % (35-52); HEMOGLOBIN 12.3 G/DL (11.5-16.0); LYMPHOCYTES # (AUTO) 2.6 X 10^3 (1.0-4.0); LYMPHOCYTES % (AUTO) 48 % (12-44); MEAN CORPUSCULAR HEMOGLOBIN 29 PG (25-34); MEAN CORPUSCULAR HGB CONC 35 G/DL (32-36); MEAN CORPUSCULAR VOLUME 83 FL (80-99); MEAN PLATELET VOLUME 10.2 FL (7.4-10.4); MONOCYTES # (AUTO) 0.5 X 10^3 (0.0-1.0); MONOCYTES % (AUTO) 10 % (0-12); NEUTROPHILS # (AUTO) 2.2 X 10^3 (1.8-7.8); NEUTROPHILS % (AUTO) 41 % (42-75); PLATELET COUNT 177 10^3/uL (130-400); RED BLOOD COUNT 4.22 10^6/uL (4.35-5.85); RED CELL DISTRIBUTION WIDTH 12.5 % (10.0-14.5); WHITE BLOOD COUNT 5.4 10^3/uL (4.3-11.0)
[2018-03-04 04:22] LABS: BUN/CREATININE RATIO 30; CALCIUM 8.7 MG/DL (8.5-10.1); CARBON DIOXIDE 22 MMOL/L (21-32); CHLORIDE 106 MMOL/L (98-107); CREATININE SERUM 0.81 MG/DL (0.60-1.30); GFR ESTIMATED > 60; GLUCOSE 122 MG/DL (70-105); MAGNESIUM 1.8 MG/DL (1.8-2.4); PHOSPHORUS 2.7 MG/DL (2.3-4.7); POTASSIUM 4.7 MMOL/L (3.6-5.0); SODIUM 137 MMOL/L (135-145)
[2018-03-04] MEDS: inSUlin ASPART (NovoLOG) 1 UNIT/0.01 ML (CHARGE PER UNIT) SC SCH ×4 (06:07→21:36)
[2018-03-04] MEDS: MAGNESIUM 1 GM/100 ML IVPB 100 ML IV SCH (06:07)
--- NOTE | 2018-03-04 06:19 | Pulmonary Progress Note ---
Subjective Time Seen by Provider: 06:19 Subjective/Events-last exam Pt is doing better. NO complications noted. Sepsis Event Evaluation Height, Weight, BMI Height: 5'0.00" Weight: 180lbs.0.0oz.81.648743fm; 35.5 BMI Method:Stated Focused Exam Lactate Level 03/02/18 16:55: Lactic Acid Level 1.59 Exam Exam Vital Signs Date Time Temp Pulse Resp B/P (MAP) Pulse Ox O2 Delivery O2 Flow Rate FiO2 03/04/18 03:00 65 14 137/76 (96) 97 Room Air 03/04/18 02:00 64 17 124/66 (85) 97 Room Air 03/04/18 01:00 61 14 140/74 (96) 96 Room Air 03/04/18 01:00 68 03/04/18 00:00 Room Air 03/04/18 00:00 63 15 126/64 (84) 96 Room Air 03/03/18 23:00 66 13 132/63 (86) 96 Room Air 03/03/18 22:00 76 18 141/80 (100) 97 Room Air 03/03/18 21:00 74 13 131/99 (110) 97 Room Air 03/03/18 20:00 Room Air 03/03/18 20:00 76 25 149/66 (93) 97 Room Air 03/03/18 19:00 70 21 148/69 (95) 97 Room Air 03/03/18 19:00 78 03/03/18 18:00 71 16 133/70 (91) 98 Room Air 03/03/18 17:00 71 19 118/74 (89) 96 Room Air 03/03/18 16:00 70 19 95/61 (72) 95 Room Air 03/03/18 15:58 96.3 Room Air 03/03/18 15:55 Room Air 03/03/18 15:00 67 16 140/68 (92) 98 Room Air 03/03/18 14:00 74 18 134/73 (93) 98 Room Air 03/03/18 13:00 71 18 138/56 (83) 98 Room Air 03/03/18 13:00 82 03/03/18 12:05 Room Air 03/03/18 12:05 96.4 Room Air 03/03/18 12:00 72 21 150/68 (95) 99 Room Air 03/03/18 11:00 80 16 150/63 (92) 98 Room Air 03/03/18 10:00 78 21 144/71 (95) 99 Room Air 03/03/18 09:00 80 23 142/77 (98) 99 Room Air 03/03/18 08:00 87 18 133/71 (91) 99 Room Air 03/03/18 07:50 Room Air 03/03/18 07:50 96.6 Room Air 03/03/18 07:00 81 03/03/18 07:00 81 18 134/64 (87) 100 Room Air I & O 03/04/18 07:00 Intake Total 3620 ml Output Total 2950 ml Balance 670 ml Height & Weight Height: 5'0.00" Weight: 180lbs.0.0oz.81.908350nh; 35.5 BMI Method:Stated General Appearance: No Apparent Distress, WD/WN HEENT: PERRL/EOMI, Moist Mucous Membranes Neck: Non Tender, Supple Respiratory: Lungs Clear, No Respiratory Distress Cardiovascular: Regular Rate, Rhythm, No Murmur Capillary Refill: Less Than 3 Seconds Gastrointestinal: normal bowel sounds, non tender, soft Extremity: Normal Capillary Refill, No Calf Tenderness Neurologic/Psychiatric: Alert, Oriented x3, Normal Mood/Affect Skin: Normal Color, Warm/Dry Results Lab Laboratory Tests 03/02/18 15:20 03/02/18 19:05 03/03/18 03:00 03/03/18 03:20 03/03/18 09:55 03/03/18 17:25 03/04/18 03:35 Assessment/Plan Assessment/Plan Hyperkalemia with nonanion gapped metabolic acidosis - resolved AMBER- improving NIDDM -Monitor HTN -Lopressor Pt is doing better will transfer to 4th floor. I am going to sign off please call with any questions. MEY PETERSON DO Mar 04, 2018 06:19
--- NOTE | 2018-03-04 07:38 | Progress Note-Hospitalist ---
Subjective HPI/CC On Admission Date Seen by Provider: Mar 04, 2018 Time Seen by Provider: 07:33 Pt is a 63yoCF with a PMH of HTN, NIDDMII, and HLD who presented to the ER with CC hyperkalemia after having labs drawn for his routine doctor's appointment. She states that she has noticed she has been more weak lately as well and has been having a hard time standing. Her labs revealed a K of 6.9 this AM and a creatinine of 1.94. She was referred to the ER for this and EKG revealed minimally peaked T waves so she was emergently given calcium gluconate. She was also treated with lasix and high dose albuterol. Repeat labs are to be drawn at 1500 today. Subjective/Events-last exam Reports doing well. Did have some nausea overnight. Responded well to Zofran. Discussed meds with patient and need to stop Invokana and spironolactone. Focused Exam Lactate Level 03/02/18 16:55: Lactic Acid Level 1.59 Objective Exam Vital Signs Vital Signs Date Time Temp Pulse Resp B/P (MAP) Pulse Ox O2 Delivery O2 Flow Rate FiO2 03/04/18 06:00 69 14 138/67 (90) 92 Room Air 03/04/18 04:00 98.1 Capillary Refill : Less Than 3 Seconds General Appearance: No Apparent Distress, WD/WN Respiratory: Lungs Clear, No Respiratory Distress Cardiovascular: Regular Rate, Rhythm, No Murmur Neurologic/Psychiatric: Alert, Oriented x3, Normal Mood/Affect Skin: Normal Color, Warm/Dry Results/Procedures Lab Laboratory Tests 03/03/18 09:55 03/03/18 17:25 03/04/18 03:35 Patient resulted labs reviewed. 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 and metformin for years Also start Invokana within the last year and review shows slowly rising K over same time frame Will hold all for now (2) AMBER (acute kidney injury) Status: Resolved Assessment & Plan: Resolved (3) Non-insulin dependent type 2 diabetes mellitus Status: Chronic Assessment & Plan: Continue sliding scale and accucheks A1c 7.5 (4) Essential (primary) hypertension Assessment & Plan: Continue Metoprolol (5) Prophylactic measure Assessment & Plan: Saline Lock Lovenox for DVT ppx ADA diet Clinical Quality Measures DVT/VTE Risk/Contraindication: Risk Factor Score Per Nursin RFS Level Per Nursing on Admit: 2=Moderate ANTONIO EAGLE MD Mar 04, 2018 7:38 am
--- NOTE | 2018-03-04 07:55 | Diagnostic Imaging Report ---
INDICATION: Hyperkalemic emergency. Dyspnea. TECHNIQUE: Single view chest 3:36 AM. CORRELATION STUDY: 11/21/2008 FINDINGS: Limited depth of inspiration. Given this, the heart size, mediastinal configuration and pulmonary vascularity are within normal limits. The lungs are clear with no consolidating infiltrate. There is no significant effusion or pneumothorax. IMPRESSION: 1. Negative appearing portable chest. Dictated by: Dictated on workstation # [id number]
[2018-03-04] MEDS: meTOprolol SUCCINATE 100 MG (TOPROL XL) TAB PO SCH (08:12)
[2018-03-04] MEDS: ONDANSETRON 4 MG/2 ML (SDV) Z0FRAN IV PRN ×2 (08:48→17:06)
[2018-03-04] MEDS: ENOXAPARIN 40 MG/0.4 ML (LOVENOX) SYR SC SCH (13:00)
[2018-03-05 00:34] VITALS: BP 159/70
[2018-03-05 04:18] VITALS: BP 157/71
[2018-03-05 06:16] LABS: BASOPHILS % (AUTO) 0 % (0-10); EOSINOPHILS # (AUTO) 0.1 10^3/uL (0.0-0.3); EOSINOPHILS % (AUTO) 2 % (0-10); HEMATOCRIT 35 % (35-52); HEMOGLOBIN 12.3 G/DL (11.5-16.0); LYMPHOCYTES # (AUTO) 2.1 X 10^3 (1.0-4.0); LYMPHOCYTES % (AUTO) 39 % (12-44); MEAN CORPUSCULAR HEMOGLOBIN 29 PG (25-34); MEAN CORPUSCULAR HGB CONC 35 G/DL (32-36); MEAN CORPUSCULAR VOLUME 83 FL (80-99); MONOCYTES # (AUTO) 0.5 X 10^3 (0.0-1.0); MONOCYTES % (AUTO) 8 % (0-12); NEUTROPHILS # (AUTO) 2.8 X 10^3 (1.8-7.8); NEUTROPHILS % (AUTO) 50 % (42-75); PLATELET COUNT 173 10^3/uL (130-400); RED BLOOD COUNT 4.26 10^6/uL (4.35-5.85); RED CELL DISTRIBUTION WIDTH 12.3 % (10.0-14.5); WHITE BLOOD COUNT 5.5 10^3/uL (4.3-11.0)
[2018-03-05] MEDS: inSUlin ASPART (NovoLOG) 1 UNIT/0.01 ML (CHARGE PER UNIT) SC SCH (06:27)
[2018-03-05 06:28] LABS: BUN/CREATININE RATIO 21; CARBON DIOXIDE 23 MMOL/L (21-32); CHLORIDE 104 MMOL/L (98-107); CREATININE SERUM 0.86 MG/DL (0.60-1.30); GFR ESTIMATED > 60; GLUCOSE 133 MG/DL (70-105); MAGNESIUM 1.9 MG/DL (1.8-2.4); PHOSPHORUS 3.1 MG/DL (2.3-4.7); POTASSIUM 4.5 MMOL/L (3.6-5.0); SODIUM 135 MMOL/L (135-145)
[2018-03-05 08:00] VITALS: BP 166/70
--- NOTE | 2018-03-05 08:08 | Diagnostic Imaging Report ---
INDICATION: Dyspnea. COMPARISON: 03/04/2018 FINDINGS: Single frontal view of the chest demonstrates normal heart size and pulmonary vascularity. The lungs are well aerated and clear. No large pleural effusion or pneumothorax is seen. The visualized osseous structures show no acute abnormalities. IMPRESSION: 1. No acute cardiopulmonary process. Dictated by: Dictated on workstation # [id number]
--- NOTE | 2018-03-05 08:09 | Discharge Inst-Simple/Standard ---
Discharge Inst-Standard Patient Instructions/Follow Up Plan of Care/Instructions/FU: Please continue to take your medications as written as we discussed. Please follow up with your PCP next week for repeat blood work. Activity as Tolerated: Yes Discharge Diet: Low Sodium Diet, ADA Diet Return to The Hospital For: Weakness, SOB, chest pain, confusion, or if you feel you are getting worse. ANTONIO EAGLE MD Mar 05, 2018 08:09
--- NOTE | 2018-03-05 08:11 | Discharge Summary-Hospitalist ---
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 Also start Invokana within the last year and review shows slowly rising K over same time frame Will hold all for now (2) AMBER (acute kidney injury) Status: Resolved Assessment & Plan: Resolved (3) Non-insulin dependent type 2 diabetes mellitus Status: Chronic Assessment & Plan: Continue sliding scale and accucheks A1c 7.5 (4) Essential (primary) hypertension Assessment & Plan: Continue Metoprolol (5) Prophylactic measure Assessment & Plan: Saline Lock Lovenox for DVT ppx ADA diet Discharge Summary Procedures/Consulations Dr Jenni Maynard Discharge Physical Exam Allergies: Coded Allergies: Sodium Bisulfite (Verified Allergy, Severe, SHORTNESS OF BREATH, HIVES, 10/04) Sulfa (Sulfonamide Antibiotics) (Verified Allergy, Severe, RASH, SHORTNESS OF BREATH, 11/09/07) Penicillins (Verified Allergy, Mild, RASH, 11/09/07) Vitals & I&Os Vital Signs Date Time Temp Pulse Resp B/P (MAP) Pulse Ox O2 Delivery O2 Flow Rate FiO2 03/05/18 09:34 62 20 166/70 95 Room Air 03/05/18 08:00 97.1 General Appearance: Alert, Oriented X3 Respiratory: Clear to Auscultation Cardiovascular: Regular Rate Hospital Course Pt was admitted for severe hyperkalemia and AMBER. She was monitored in the ICU and treated aggressively given her K 7.1 at one point. This was likely due to spironolactone use in conjunction with Invokana and Lisinopril. We discussed her medication needs and she will likely still need lisinopril for renal protection with her diabetes but have stopped the spironolactone and Invokana indefinitely. Her potassium and creatinine normalized and she is to follow up with her PCP in the next week for repeat chemistry and BP monitoring. She was agreeable with plan to DC. Labs (last 24 hrs) Laboratory Tests 03/04/18 17:11: Glucometer 123H 03/04/18 21:16: Glucometer 161H 03/05/18 05:55: White Blood Count 5.5, Red Blood Count 4.26L, Hemoglobin 12.3, Hematocrit 35, Mean Corpuscular Volume 83, Mean Corpuscular Hemoglobin 29, Mean Corpuscular Hemoglobin Concent 35, Red Cell Distribution Width 12.3, Platelet Count 173, Mean Platelet Volume 10.0, Neutrophils (%) (Auto) 50, Lymphocytes (%) (Auto) 39 , Monocytes (%) (Auto) 8, Eosinophils (%) (Auto) 2, Basophils (%) (Auto) 0, Neutrophils # (Auto) 2.8, Lymphocytes # (Auto) 2.1, Monocytes # (Auto) 0.5, Eosinophils # (Auto) 0.1, Basophils # (Auto) 0.0, Sodium Level 135, Potassium Level 4.5, Chloride Level 104, Carbon Dioxide Level 23, Anion Gap 8, Blood Urea Nitrogen 18, Creatinine 0.86, Estimat Glomerular Filtration Rate > 60, BUN/ Creatinine Ratio 21, Glucose Level 133H, Calcium Level 9.0, Phosphorus Level 3.1 , Magnesium Level 1.9 03/05/18 05:56: Glucometer 132H Microbiology 03/02/18 MRSA Screen - Final, Complete MRSA not isolated 03/02/18 Urine Culture - Final, Complete Strep agalactiae Group B See Comments Patient resulted labs reviewed. Pending Labs Discussion & Recommendations Discharge Planning: >30 minutes discharge planning Discharge Home Medications: Active Scripts Active Reported Cetirizine HCl 10 Mg Tablet 10 Mg PO HS Rosuvastatin Calcium 5 Mg Tablet 5 Mg PO HS Metformin HCl 1,000 Mg Tablet 1,000 Mg PO BID WITH MEALS Amlodipine Besylate 5 Mg Tablet 10 Mg PO DAILY TAKES 2 (5MG) TABLETS Januvia (Sitagliptin Phosphate) 100 Mg Tablet 100 Mg PO DAILY Metoprolol Succinate 100 Mg Tab.er.24h 100 Mg PO DAILY Pavithra-D 24 Hour Tablet (Fexofenadine/Pseudoephedrine) 1 Each Tab.er.24h 1 Tab PO DAILY PRN Instructions to patient/family Please see electronic discharge instructions given to patient. Clinical Quality Measures DVT/VTE Risk/Contraindication: Risk Factor Score Per Nursin RFS Level Per Nursing on Admit: 2=Moderate ANTONIO EAGLE MD Mar 05, 2018 08:11
[2018-03-05] MEDS: meTOprolol SUCCINATE 100 MG (TOPROL XL) TAB PO SCH (08:31)
[2018-03-05 09:34] VITALS: BP 166/70
== END 2018-03-05 09:35 | disposition home or self-care (01) | DRG 641 ==
LOC: EDUNIT# 10:03 → ER 10:05 → ICU 11:50 → 4TH 03-04 11:10
PROVIDERS: ADMIT Family Medicine; ATTEND Family Medicine
DX: E87.5 Hyperkalemia (principal); N17.9 Acute kidney failure, unspecified; N30.00 Acute cystitis without hematuria; E87.2 Acidosis; I10 Essential (primary) hypertension; E11.9 Type 2 diabetes mellitus without complications; E78.00 Pure hypercholesterolemia, unspecified; J30.2 Other seasonal allergic rhinitis; Z79.84 Long term (current) use of oral hypoglycemic drugs; Z87.891 Personal history of nicotine dependence
CPT/HCPCS: 36415; 71045; 80048; 80053; 81000; 82962; 83605; 83735; 84100; 85025; 87077; 87081; 87088; 93005; 94640; 94664; 96361; 96365; 96375

== ENCOUNTER → 2018-03-02 | Outpatient (CLI) | payer OTHER ==
[~2018-03-02] MED LIST changes: +CANA100T PO; +CETI10TA17 PO; +LISI40TA PO; +METF10002 PO; +METO-395 PO; +ROSU5TAB12 PO; +SITA100T12 PO; +SPIR25TA5 PO
[2018-03-02 06:56] LABS: BASOPHILS % (AUTO) 0 % (0-10); EOSINOPHILS # (AUTO) 0.2 10^3/uL (0.0-0.3); EOSINOPHILS % (AUTO) 2 % (0-10); HEMATOCRIT 40 % (35-52); HEMOGLOBIN 14.1 G/DL (11.5-16.0); LYMPHOCYTES # (AUTO) 2.2 X 10^3 (1.0-4.0); LYMPHOCYTES % (AUTO) 27 % (12-44); MEAN CORPUSCULAR HEMOGLOBIN 30 PG (25-34); MEAN CORPUSCULAR HGB CONC 35 G/DL (32-36); MEAN CORPUSCULAR VOLUME 84 FL (80-99); MEAN PLATELET VOLUME 10.3 FL (7.4-10.4); MONOCYTES # (AUTO) 0.6 X 10^3 (0.0-1.0); MONOCYTES % (AUTO) 7 % (0-12); NEUTROPHILS # (AUTO) 5.3 X 10^3 (1.8-7.8); NEUTROPHILS % (AUTO) 64 % (42-75); PLATELET COUNT 239 10^3/uL (130-400); RED BLOOD COUNT 4.76 10^6/uL (4.35-5.85); RED CELL DISTRIBUTION WIDTH 12.7 % (10.0-14.5); WHITE BLOOD COUNT 8.3 10^3/uL (4.3-11.0)
[2018-03-02 07:18] LABS: ALBUMIN 4.8 GM/DL (3.2-4.5); BILIRUBIN,TOTAL 0.4 MG/DL (0.1-1.0); CREATININE SERUM 1.94 MG/DL (0.60-1.30); TOTAL PROTEIN 8.2 GM/DL (6.4-8.2)
[2018-03-02 08:12] LABS: POTASSIUM 6.9 MMOL/L (3.6-5.0)
== END ==
LOC: LAB 06:37
PROVIDERS: ATTEND Internal Medicine
DX: E11.9 Type 2 diabetes mellitus without complications (principal); I10 Essential (primary) hypertension; E78.5 Hyperlipidemia, unspecified; Z79.899 Other long term (current) drug therapy
CPT/HCPCS: 36415; 80053; 80061; 83036; 84443; 85025

== ENCOUNTER → 2018-03-10 | Outpatient (CLI) | payer OTHER ==
[~2018-03-10] MED LIST changes: +CANA100T PO; +CETI10TA17 PO; +LISI40TA PO; +METF10002 PO; +METO-395 PO; +ROSU5TAB12 PO; +SITA100T12 PO; +SPIR25TA5 PO
[2018-03-10 07:11] LABS: CALCIUM 9.8 MG/DL (8.5-10.1); CREATININE SERUM 0.95 MG/DL (0.60-1.30); POTASSIUM 4.6 MMOL/L (3.6-5.0)
== END ==
LOC: LAB 06:39
PROVIDERS: ATTEND Internal Medicine
DX: R79.89 Other specified abnormal findings of blood chemistry (principal)
CPT/HCPCS: 36415; 80048

== ENCOUNTER → 2018-03-24 | Outpatient (CLI) | payer OTHER ==
[2018-03-24 07:02] LABS: BUN/CREATININE RATIO 24; CALCIUM 9.9 MG/DL (8.5-10.1); CARBON DIOXIDE 22 MMOL/L (21-32); CHLORIDE 106 MMOL/L (98-107); CREATININE SERUM 0.82 MG/DL (0.60-1.30); GFR ESTIMATED > 60; GLUCOSE 171 MG/DL (70-105); POTASSIUM 4.4 MMOL/L (3.6-5.0); SODIUM 139 MMOL/L (135-145)
== END ==
LOC: LAB 06:36
PROVIDERS: ATTEND Internal Medicine
DX: I10 Essential (primary) hypertension (principal); Z79.899 Other long term (current) drug therapy
CPT/HCPCS: 36415; 80048

== ENCOUNTER → 2018-06-28 | Outpatient (CLI) | payer OTHER ==
[~2018-06-28] MED LIST changes: -AMLO10TA2 PO; +AMLO10TA6 PO; +AMLO5TAB7 PO; +METF-399 PO; -METF10002 PO
[2018-06-28 07:07] LABS: BASOPHILS % (AUTO) 1 % (0-10); EOSINOPHILS # (AUTO) 0.2 10^3/uL (0.0-0.3); EOSINOPHILS % (AUTO) 3 % (0-10); HEMATOCRIT 36 % (35-52); HEMOGLOBIN 12.2 G/DL (11.5-16.0); LYMPHOCYTES # (AUTO) 1.6 X 10^3 (1.0-4.0); LYMPHOCYTES % (AUTO) 22 % (12-44); MEAN CORPUSCULAR HEMOGLOBIN 28 PG (25-34); MEAN CORPUSCULAR HGB CONC 34 G/DL (32-36); MEAN CORPUSCULAR VOLUME 82 FL (80-99); MEAN PLATELET VOLUME 9.8 FL (7.4-10.4); MONOCYTES # (AUTO) 0.5 X 10^3 (0.0-1.0); MONOCYTES % (AUTO) 6 % (0-12); NEUTROPHILS # (AUTO) 5.1 X 10^3 (1.8-7.8); NEUTROPHILS % (AUTO) 69 % (42-75); PLATELET COUNT 250 10^3/uL (130-400); RED BLOOD COUNT 4.35 10^6/uL (4.35-5.85); RED CELL DISTRIBUTION WIDTH 12.5 % (10.0-14.5); WHITE BLOOD COUNT 7.4 10^3/uL (4.3-11.0)
[2018-06-28 07:33] LABS: ALANINE AMINOTRANSFERASE 44 U/L (0-55); ALBUMIN 4.2 GM/DL (3.2-4.5); ALKALINE PHOSPHATASE 64 U/L (40-136); BILIRUBIN,TOTAL 0.5 MG/DL (0.1-1.0); BUN/CREATININE RATIO 17; CALCIUM 9.4 MG/DL (8.5-10.1); CARBON DIOXIDE 18 MMOL/L (21-32); CHLORIDE 106 MMOL/L (98-107); CHOLESTEROL 136 MG/DL (< 200); CREATININE SERUM 0.77 MG/DL (0.60-1.30); GFR ESTIMATED > 60; GLUCOSE 235 MG/DL (70-105); HDL CHOLESTEROL 32 MG/DL (40-60); POTASSIUM 4.2 MMOL/L (3.6-5.0); SODIUM 136 MMOL/L (135-145); TOTAL PROTEIN 7.5 GM/DL (6.4-8.2); TRIGLYCERIDES 200 MG/DL (<150); VLDL CHOLESTEROL 40 MG/DL (5-40)
== END ==
LOC: LAB 06:35
PROVIDERS: ATTEND Physician Assistant
DX: I10 Essential (primary) hypertension (principal); E11.9 Type 2 diabetes mellitus without complications; E78.5 Hyperlipidemia, unspecified
CPT/HCPCS: 36415; 80053; 80061; 83036; 84443; 85025

== ENCOUNTER → 2018-07-26 | Outpatient (CLI) | payer OTHER | LOC: CARD 12:17 | PROVIDERS: ATTEND Internal Medicine Cardiovascular Disease | DX: E11.9 Type 2 diabetes mellitus without complications (principal); I10 Essential (primary) hypertension; E78.5 Hyperlipidemia, unspecified; G47.33 Obstructive sleep apnea (adult) (pediatric); R06.02 Shortness of breath | CPT/HCPCS: 93306 ==

== ENCOUNTER → 2019-01-26 | Outpatient (CLI) | payer OTHER ==
[~2019-01-26] MED LIST changes: -AMLO10TA6 PO; +AMLO10TA7 PO; -AMLO5TAB7 PO; +AMLO5TAB9 PO
[2019-01-26 07:07] LABS: ALANINE AMINOTRANSFERASE 52 U/L (0-55); ALBUMIN 4.1 GM/DL (3.2-4.5); ALKALINE PHOSPHATASE 60 U/L (40-136); BILIRUBIN,TOTAL 0.4 MG/DL (0.1-1.0); BUN/CREATININE RATIO 20; CALCIUM 9.1 MG/DL (8.5-10.1); CARBON DIOXIDE 20 MMOL/L (21-32); CHLORIDE 105 MMOL/L (98-107); CREATININE SERUM 0.75 MG/DL (0.60-1.30); GFR ESTIMATED > 60; GLUCOSE 263 MG/DL (70-105); POTASSIUM 4.1 MMOL/L (3.6-5.0); SODIUM 136 MMOL/L (135-145); TOTAL PROTEIN 7.3 GM/DL (6.4-8.2)
== END ==
LOC: LAB 06:35
PROVIDERS: ATTEND Internal Medicine
DX: E11.9 Type 2 diabetes mellitus without complications (principal); I10 Essential (primary) hypertension; E78.2 Mixed hyperlipidemia; Z79.899 Other long term (current) drug therapy
CPT/HCPCS: 36415; 80053; 83036

== ENCOUNTER → 2019-05-23 | Outpatient (CLI) | payer OTHER ==
[~2019-05-23] MED LIST changes: -ROSU5TAB12 PO; +ROSU5TAB13 PO
[2019-05-23 07:18] LABS: ALANINE AMINOTRANSFERASE 33 U/L (0-55); ALBUMIN 4.3 GM/DL (3.2-4.5); ALKALINE PHOSPHATASE 44 U/L (40-136); BILIRUBIN,TOTAL 0.4 MG/DL (0.1-1.0); BUN/CREATININE RATIO 29; CALCIUM 9.3 MG/DL (8.5-10.1); CARBON DIOXIDE 18 MMOL/L (21-32); CHLORIDE 107 MMOL/L (98-107); CREATININE SERUM 0.76 MG/DL (0.60-1.30); GFR ESTIMATED > 60; GLUCOSE 165 MG/DL (70-105); POTASSIUM 4.1 MMOL/L (3.6-5.0); SODIUM 139 MMOL/L (135-145); TOTAL PROTEIN 8.1 GM/DL (6.4-8.2); URIC ACID 5.5 MG/DL (2.6-7.2)
== END ==
LOC: LAB 06:32
PROVIDERS: ATTEND Internal Medicine
DX: E11.9 Type 2 diabetes mellitus without complications (principal); I10 Essential (primary) hypertension; E78.2 Mixed hyperlipidemia; M12.9 Arthropathy, unspecified; Z79.899 Other long term (current) drug therapy
CPT/HCPCS: 36415; 80053; 83036; 84550; 85652; 86431

== ENCOUNTER → 2019-07-28 | Outpatient (CLI) | payer OTHER ==
[2019-07-28 09:02] LABS: HEMOGLOBIN 14.2 G/DL (11.5-16.0); MEAN PLATELET VOLUME 9.7 FL (7.4-10.4); RED CELL DISTRIBUTION WIDTH 13.3 % (10.0-14.5); WHITE BLOOD COUNT 6.8 10^3/uL (4.3-11.0)
[2019-07-28 09:27] LABS: ALANINE AMINOTRANSFERASE 53 U/L (0-55); ALBUMIN 4.6 GM/DL (3.2-4.5); ALKALINE PHOSPHATASE 51 U/L (40-136); BILIRUBIN,TOTAL 0.6 MG/DL (0.1-1.0); BUN/CREATININE RATIO 25; CALCIUM 9.7 MG/DL (8.5-10.1); CARBON DIOXIDE 19 MMOL/L (21-32); CHLORIDE 103 MMOL/L (98-107); CHOLESTEROL 173 MG/DL (< 200); CREATININE SERUM 0.81 MG/DL (0.60-1.30); GFR ESTIMATED > 60; GLUCOSE 193 MG/DL (70-105); HDL CHOLESTEROL 43 MG/DL (40-60); POTASSIUM 4.6 MMOL/L (3.6-5.0); SODIUM 136 MMOL/L (135-145); TOTAL PROTEIN 7.9 GM/DL (6.4-8.2); TRIGLYCERIDES 377 MG/DL (<150); VLDL CHOLESTEROL 75 MG/DL (5-40)
== END ==
LOC: LAB 08:45
PROVIDERS: ATTEND Internal Medicine
DX: Z00.00 Encounter for general adult medical examination without abnormal findings (principal); E11.9 Type 2 diabetes mellitus without complications; I10 Essential (primary) hypertension; E78.2 Mixed hyperlipidemia; Z79.899 Other long term (current) drug therapy
CPT/HCPCS: 36415; 80053; 80061; 83036; 84443; 85027

== ENCOUNTER → 2019-08-01 | Outpatient (CLI) | payer OTHER ==
[~2019-08-01] MED LIST changes: -METO-395 PO
--- NOTE | 2019-08-02 08:27 | Diagnostic Imaging Report ---
INDICATION: Screening The current study was also evaluated with a Computer Aided Detection (CAD) system. 3-D Tomographic imaging was also performed. No prior examinations are available for comparison. FINDINGS: There are scattered fibroglandular densities bilaterally. There are benign type calcifications in both breasts. There is no dominant mass, spiculated lesion or suspicious calcifications identified. Skin, nipples and axilla are unremarkable. IMPRESSION: Category 2 benign ACR BI-RADS Category 2: Benign findings. Result letter will be mailed to the patient. Note: At least 10% of breast cancer is not imaged by mammography. Dictated by: Dictated on workstation # [id number]
== END ==
LOC: RAD 15:09
PROVIDERS: ATTEND Internal Medicine
DX: Z12.31 Encounter for screening mammogram for malignant neoplasm of breast (principal)
CPT/HCPCS: 77067

== ENCOUNTER → 2020-04-20 | Outpatient (CLI) | payer OTHER ==
[2020-04-20 07:33] LABS: ALANINE AMINOTRANSFERASE 69 U/L (0-55); ALBUMIN 4.7 GM/DL (3.2-4.5); ALKALINE PHOSPHATASE 44 U/L (40-136); BILIRUBIN,TOTAL 0.8 MG/DL (0.1-1.0); BUN/CREATININE RATIO 25; CALCIUM 10.5 MG/DL (8.5-10.1); CARBON DIOXIDE 23 MMOL/L (21-32); CHLORIDE 101 MMOL/L (98-107); CHOLESTEROL 164 MG/DL (< 200); CREATININE SERUM 0.81 MG/DL (0.60-1.30); GFR ESTIMATED > 60; GLUCOSE 179 MG/DL (70-105); HDL CHOLESTEROL 41 MG/DL (40-60); POTASSIUM 4.7 MMOL/L (3.6-5.0); SODIUM 137 MMOL/L (135-145); TOTAL PROTEIN 8.1 GM/DL (6.4-8.2); TRIGLYCERIDES 376 MG/DL (<150); VLDL CHOLESTEROL 75 MG/DL (5-40)
== END ==
LOC: LAB 07:03
PROVIDERS: ATTEND Internal Medicine
DX: I10 Essential (primary) hypertension (principal); E78.2 Mixed hyperlipidemia; E11.9 Type 2 diabetes mellitus without complications
CPT/HCPCS: 36415; 80053; 80061; 83036

== ENCOUNTER → 2020-08-27 | Outpatient (CLI) | payer OTHER ==
[~2020-08-27] MED LIST changes: +AMLO-250 PO; +AMLO-251 PO; -AMLO10TA7 PO; -AMLO5TAB9 PO
[2020-08-27 07:40] LABS: ALBUMIN 4.3 GM/DL (3.2-4.5); CHLORIDE 106 MMOL/L (98-107); SODIUM 139 MMOL/L (135-145)
[2020-08-27 07:41] LABS: CALCIUM 9.5 MG/DL (8.5-10.1)
[2020-08-27 07:42] LABS: GLUCOSE 206 MG/DL (70-105); TOTAL PROTEIN 7.4 GM/DL (6.4-8.2); TRIGLYCERIDES 335 MG/DL (<150); VLDL CHOLESTEROL 67 MG/DL (5-40)
[2020-08-27 07:43] LABS: CARBON DIOXIDE 22 MMOL/L (21-32)
[2020-08-27 07:44] LABS: BILIRUBIN,TOTAL 0.6 MG/DL (0.1-1.0)
[2020-08-27 07:46] LABS: ALKALINE PHOSPHATASE 38 U/L (40-136); CREATININE SERUM 0.77 MG/DL (0.60-1.30); GFR ESTIMATED > 60
[2020-08-27 07:47] LABS: BUN/CREATININE RATIO 26; CHOLESTEROL 158 MG/DL (< 200)
[2020-08-27 07:48] LABS: HDL CHOLESTEROL 43 MG/DL (40-60)
[2020-08-27 07:49] LABS: ALANINE AMINOTRANSFERASE 73 U/L (0-55)
[2020-08-27 08:27] LABS: BASOPHILS % (AUTO) 1 % (0-10); EOSINOPHILS # (AUTO) 0.2 10^3/uL (0.0-0.3); EOSINOPHILS % (AUTO) 3 % (0-10); HEMATOCRIT 42 % (35-52); HEMOGLOBIN 14.2 g/dL (11.5-16.0); LYMPHOCYTES # (AUTO) 2.5 10^3/uL (1.0-4.0); LYMPHOCYTES % (AUTO) 39 % (12-44); MEAN CORPUSCULAR HEMOGLOBIN 29 pg (25-34); MEAN CORPUSCULAR HGB CONC 34 g/dL (32-36); MEAN CORPUSCULAR VOLUME 85 fL (80-99); MONOCYTES # (AUTO) 0.4 10^3/uL (0.0-1.0); MONOCYTES % (AUTO) 7 % (0-12); NEUTROPHILS # (AUTO) 3.2 10^3/uL (1.8-7.8); NEUTROPHILS % (AUTO) 50 % (42-75); PLATELET COUNT 184 10^3/uL (130-400); WHITE BLOOD COUNT 6.3 10^3/uL (4.3-11.0)
== END ==
LOC: LAB 06:55
PROVIDERS: ATTEND Internal Medicine
DX: E78.2 Mixed hyperlipidemia (principal); I10 Essential (primary) hypertension; E11.9 Type 2 diabetes mellitus without complications; B02.9 Zoster without complications
CPT/HCPCS: 36415; 80053; 80061; 83036; 84443; 85025

== ENCOUNTER → 2020-09-06 | Outpatient (CLI) | payer OTHER ==
--- NOTE | 2020-09-06 17:41 | Diagnostic Imaging Report ---
INDICATION: Screening. At this time there are no current complaints. EXAMINATION: Digital mammogram bilateral screening. 3D tomographic images were obtained and reviewed. COMPARISON: This study was compared to the prior exam of 08/01/2019. The current study was also evaluated with a Computer Aided Detection (CAD) system. FINDINGS: The fibroglandular tissue in both breasts is heterogeneously dense. This does limit the sensitivity of this exam. Overall, there does not appear to have been any significant change when compared to the prior study. No primary or secondary sign of malignancy is noted. IMPRESSION: There is no radiographic evidence for malignancy. ACR BI-RADS Category 1: Negative. Result letter will be mailed to the patient. Note: At least 10% of breast cancer is not imaged by mammography. Dictated by: Dictated on workstation # [id number]
== END ==
LOC: RAD 15:15
PROVIDERS: ATTEND Internal Medicine
DX: Z12.31 Encounter for screening mammogram for malignant neoplasm of breast (principal)
CPT/HCPCS: 77063; 77067

== ENCOUNTER → 2021-01-03 | Outpatient (CLI) | payer OTHER ==
[~2021-01-03] MED LIST changes: -LISI40TA PO; +LISI40TA9 PO
[2021-01-03 08:04] LABS: ALANINE AMINOTRANSFERASE 52 U/L (0-55); ALBUMIN 4.4 GM/DL (3.2-4.5); ALKALINE PHOSPHATASE 43 U/L (40-136); BILIRUBIN,TOTAL 0.5 MG/DL (0.1-1.0); BUN/CREATININE RATIO 29; CALCIUM 9.4 MG/DL (8.5-10.1); CARBON DIOXIDE 22 MMOL/L (21-32); CHLORIDE 103 MMOL/L (98-107); CHOLESTEROL 180 MG/DL (< 200); CREATININE SERUM 0.79 MG/DL (0.60-1.30); GFR ESTIMATED > 60; GLUCOSE 198 MG/DL (70-105); HDL CHOLESTEROL 41 MG/DL (40-60); POTASSIUM 4.4 MMOL/L (3.6-5.0); SODIUM 135 MMOL/L (135-145); TOTAL PROTEIN 7.5 GM/DL (6.4-8.2); TRIGLYCERIDES 434 MG/DL (<150)
== END ==
LOC: LAB 07:16
PROVIDERS: ATTEND Internal Medicine
DX: E11.9 Type 2 diabetes mellitus without complications (principal); I10 Essential (primary) hypertension; E78.2 Mixed hyperlipidemia; Z79.899 Other long term (current) drug therapy
CPT/HCPCS: 36415; 80053; 80061; 83036

== ENCOUNTER → 2021-01-08 | Outpatient (CLI) | payer OTHER | LOC: CARD 14:57 | PROVIDERS: ATTEND Internal Medicine | DX: I08.0 Rheumatic disorders of both mitral and aortic valves (principal) | CPT/HCPCS: 93306 ==

== ENCOUNTER → 2021-04-02 | Outpatient (CLI) | payer OTHER ==
[2021-04-02 07:18] LABS: ALBUMIN 4.3 GM/DL (3.2-4.5); BILIRUBIN,TOTAL 0.7 MG/DL (0.1-1.0); CALCIUM 9.6 MG/DL (8.5-10.1); CREATININE SERUM 0.75 MG/DL (0.60-1.30); POTASSIUM 4.2 MMOL/L (3.6-5.0)
== END ==
LOC: LAB 06:33
PROVIDERS: ATTEND Internal Medicine Cardiovascular Disease
DX: E78.2 Mixed hyperlipidemia (principal)
CPT/HCPCS: 36415; 80053; 80061

== ENCOUNTER → 2021-05-01 | Outpatient (CLI) | payer OTHER ==
[2021-05-01 07:09] LABS: ALBUMIN 4.2 GM/DL (3.2-4.5); POTASSIUM 4.2 MMOL/L (3.6-5.0)
[2021-05-01 07:10] LABS: CALCIUM 9.6 MG/DL (8.5-10.1)
[2021-05-01 07:12] LABS: TOTAL PROTEIN 7.6 GM/DL (6.4-8.2)
[2021-05-01 07:13] LABS: BILIRUBIN,TOTAL 0.5 MG/DL (0.1-1.0)
[2021-05-01 07:15] LABS: CREATININE SERUM 0.74 MG/DL (0.60-1.30)
== END ==
LOC: LAB 06:44
PROVIDERS: ATTEND Internal Medicine
DX: E11.9 Type 2 diabetes mellitus without complications (principal); I10 Essential (primary) hypertension; E78.2 Mixed hyperlipidemia; Z79.899 Other long term (current) drug therapy
CPT/HCPCS: 36415; 80053; 83036

== ENCOUNTER → 2021-09-06 | Outpatient (CLI) | payer OTHER ==
[2021-09-06 07:04] LABS: BASOPHILS % (AUTO) 1 % (0-10); EOSINOPHILS # (AUTO) 0.2 10^3/uL (0.0-0.3); EOSINOPHILS % (AUTO) 3 % (0-10); HEMATOCRIT 42 % (35-52); HEMOGLOBIN 14.2 g/dL (11.5-16.0); LYMPHOCYTES # (AUTO) 1.9 10^3/uL (1.0-4.0); LYMPHOCYTES % (AUTO) 35 % (12-44); MEAN CORPUSCULAR HEMOGLOBIN 29 pg (25-34); MEAN CORPUSCULAR HGB CONC 34 g/dL (32-36); MEAN CORPUSCULAR VOLUME 84 fL (80-99); MEAN PLATELET VOLUME 9.9 fL (9.0-12.2); MONOCYTES # (AUTO) 0.4 10^3/uL (0.0-1.0); MONOCYTES % (AUTO) 7 % (0-12); NEUTROPHILS # (AUTO) 2.9 10^3/uL (1.8-7.8); NEUTROPHILS % (AUTO) 54 % (42-75); PLATELET COUNT 176 10^3/uL (130-400); WHITE BLOOD COUNT 5.4 10^3/uL (4.3-11.0)
[2021-09-06 07:16] LABS: ALBUMIN 4.4 GM/DL (3.2-4.5)
[2021-09-06 07:17] LABS: POTASSIUM 4.5 MMOL/L (3.6-5.0)
[2021-09-06 07:18] LABS: CALCIUM 9.7 MG/DL (8.5-10.1)
[2021-09-06 07:19] LABS: TOTAL PROTEIN 7.6 GM/DL (6.4-8.2)
[2021-09-06 07:21] LABS: BILIRUBIN,TOTAL 0.7 MG/DL (0.1-1.0)
[2021-09-06 07:23] LABS: CREATININE SERUM 0.79 MG/DL (0.60-1.30)
== END ==
LOC: LAB 06:49
PROVIDERS: ATTEND Internal Medicine
DX: Z00.00 Encounter for general adult medical examination without abnormal findings (principal); E11.9 Type 2 diabetes mellitus without complications; I10 Essential (primary) hypertension; E78.2 Mixed hyperlipidemia; Z79.899 Other long term (current) drug therapy
CPT/HCPCS: 36415; 80053; 83036; 84443; 85025

== ENCOUNTER → 2022-01-23 | Outpatient (CLI) | payer OTHER ==
[2022-01-23 07:55] LABS: ALBUMIN 4.4 GM/DL (3.2-4.5)
[2022-01-23 07:56] LABS: POTASSIUM 4.3 MMOL/L (3.6-5.0)
[2022-01-23 07:57] LABS: CALCIUM 9.5 MG/DL (8.5-10.1)
[2022-01-23 07:58] LABS: TOTAL PROTEIN 7.4 GM/DL (6.4-8.2)
[2022-01-23 08:00] LABS: BILIRUBIN,TOTAL 0.7 MG/DL (0.1-1.0)
[2022-01-23 08:01] LABS: CREATININE SERUM 0.75 MG/DL (0.60-1.30)
== END ==
LOC: LAB 07:21
PROVIDERS: ATTEND Internal Medicine
DX: E11.9 Type 2 diabetes mellitus without complications (principal); I10 Essential (primary) hypertension; E78.5 Hyperlipidemia, unspecified
CPT/HCPCS: 36415; 80053

== ENCOUNTER → 2022-05-21 | Outpatient (CLI) | payer OTHER ==
[2022-05-21 07:07] LABS: ALBUMIN 4.3 GM/DL (3.2-4.5); POTASSIUM 4.1 MMOL/L (3.6-5.0)
[2022-05-21 07:09] LABS: CALCIUM 9.4 MG/DL (8.5-10.1)
[2022-05-21 07:10] LABS: TOTAL PROTEIN 7.3 GM/DL (6.4-8.2)
[2022-05-21 07:12] LABS: BILIRUBIN,TOTAL 0.6 MG/DL (0.1-1.0)
[2022-05-21 07:13] LABS: CREATININE SERUM 0.74 MG/DL (0.60-1.30)
== END ==
LOC: LAB 06:33
PROVIDERS: ATTEND Internal Medicine
DX: E78.2 Mixed hyperlipidemia (principal); I10 Essential (primary) hypertension; E11.9 Type 2 diabetes mellitus without complications
CPT/HCPCS: 36415; 80053; 83036

== ENCOUNTER → 2022-10-15 | Outpatient (CLI) | payer OTHER ==
[2022-10-15 07:01] LABS: BASOPHILS % (AUTO) 1 % (0-10); EOSINOPHILS # (AUTO) 0.1 10^3/uL (0.0-0.3); EOSINOPHILS % (AUTO) 2 % (0-10); HEMATOCRIT 41 % (35-52); HEMOGLOBIN 14.4 g/dL (11.5-16.0); LYMPHOCYTES # (AUTO) 1.7 10^3/uL (1.0-4.0); LYMPHOCYTES % (AUTO) 30 % (12-44); MEAN CORPUSCULAR HEMOGLOBIN 29 pg (25-34); MEAN CORPUSCULAR HGB CONC 35 g/dL (32-36); MEAN CORPUSCULAR VOLUME 84 fL (80-99); MEAN PLATELET VOLUME 9.5 fL (9.0-12.2); MONOCYTES # (AUTO) 0.4 10^3/uL (0.0-1.0); MONOCYTES % (AUTO) 8 % (0-12); NEUTROPHILS # (AUTO) 3.3 10^3/uL (1.8-7.8); NEUTROPHILS % (AUTO) 59 % (42-75); PLATELET COUNT 183 10^3/uL (130-400); WHITE BLOOD COUNT 5.6 10^3/uL (4.3-11.0)
[2022-10-15 07:16] LABS: POTASSIUM 4.4 MMOL/L (3.6-5.0)
[2022-10-15 07:17] LABS: ALBUMIN 4.4 GM/DL (3.2-4.5)
[2022-10-15 07:18] LABS: CALCIUM 9.8 MG/DL (8.5-10.1)
[2022-10-15 07:19] LABS: TOTAL PROTEIN 7.9 GM/DL (6.4-8.2)
[2022-10-15 07:21] LABS: BILIRUBIN,TOTAL 0.6 MG/DL (0.1-1.0)
[2022-10-15 07:23] LABS: CREATININE SERUM 0.85 MG/DL (0.60-1.30)
== END ==
LOC: LAB 06:38
PROVIDERS: ATTEND Internal Medicine
DX: Z13.29 Encounter for screening for other suspected endocrine disorder (principal); E11.9 Type 2 diabetes mellitus without complications; I10 Essential (primary) hypertension; G47.33 Obstructive sleep apnea (adult) (pediatric); E78.2 Mixed hyperlipidemia
CPT/HCPCS: 36415; 80053; 80061; 83036; 84443; 85025

== ENCOUNTER → 2022-10-30 | Outpatient (CLI) | payer OTHER ==
--- NOTE | 2022-10-30 19:46 | Diagnostic Imaging Report ---
INDICATION: Screening. EXAMINATION: 3D bilateral screening mammogram with CAD. The current study was also evaluated with a Computer Aided Detection (CAD) system. COMPARISON: This study was compared to the prior exams of 09/06/2020 and 08/01/2019. At this time there are no current complaints. FINDINGS: The fibroglandular tissue in both breasts is heterogeneously dense. This does limit the sensitivity of this exam. When compared to the previous study there does not appear to have been any significant change. There is no primary or secondary sign of malignancy noted. IMPRESSION: There is no evidence for malignancy. ACR BI-RADS Category 1: Negative. Result letter will be mailed to the patient. Note: At least 10% of breast cancer is not imaged by mammography. Dictated by: Dictated on workstation # [id number]
== END ==
LOC: RAD 14:52
PROVIDERS: ATTEND Internal Medicine
DX: Z12.31 Encounter for screening mammogram for malignant neoplasm of breast (principal)
CPT/HCPCS: 77063; 77067

== ENCOUNTER → 2023-03-06 | Outpatient (CLI) | payer OTHER ==
[2023-03-06 07:20] LABS: ALBUMIN 4.4 GM/DL (3.2-4.5); BILIRUBIN,TOTAL 0.6 MG/DL (0.1-1.0); CALCIUM 9.6 MG/DL (8.5-10.1); CREATININE SERUM 0.9 MG/DL (0.60-1.30); POTASSIUM 4.5 MMOL/L (3.6-5.0); TOTAL PROTEIN 7.4 GM/DL (6.4-8.2)
== END ==
LOC: LAB 06:36
PROVIDERS: ATTEND Internal Medicine
DX: E11.9 Type 2 diabetes mellitus without complications (principal); I10 Essential (primary) hypertension; E78.2 Mixed hyperlipidemia; G47.33 Obstructive sleep apnea (adult) (pediatric)
CPT/HCPCS: 36415; 80053; 83036

== ENCOUNTER → 2023-07-02 | Outpatient (CLI) | payer OTHER ==
[2023-07-02 07:17] LABS: ALBUMIN 4.2 GM/DL (3.2-4.5)
[2023-07-02 07:18] LABS: POTASSIUM 4.2 MMOL/L (3.6-5.0)
[2023-07-02 07:19] LABS: CALCIUM 9.5 MG/DL (8.5-10.1)
[2023-07-02 07:20] LABS: TOTAL PROTEIN 7.4 GM/DL (6.4-8.2)
[2023-07-02 07:22] LABS: BILIRUBIN,TOTAL 0.5 MG/DL (0.1-1.0)
[2023-07-02 07:24] LABS: CREATININE SERUM 0.78 MG/DL (0.60-1.30)
== END ==
LOC: LAB 06:39
PROVIDERS: ATTEND Internal Medicine
DX: E11.9 Type 2 diabetes mellitus without complications (principal); I10 Essential (primary) hypertension; E78.2 Mixed hyperlipidemia
CPT/HCPCS: 36415; 80053; 83036